=== PATIENT | female | born 1950 | race Caucasian/White ===

== ENCOUNTER → 2024-05-13 13:34 | Outpatient (REF) | payer MEDICARE, BC, SELFPAY | LOC: WDC 13:34 | PROVIDERS: ATTENDING PHYSICIAN Obstetrics & Gynecology Gynecology; FAMILY PHYSICIAN Emergency Medicine | DX: Z12.31 Encounter for screening mammogram for malignant neoplasm of breast (principal) | CPT/HCPCS: 77063; 77067 ==

== ENCOUNTER → 2025-01-18 18:16 | Outpatient (REF) | payer MEDICARE, BC, SELFPAY | LOC: MRI 18:16 | PROVIDERS: ATTENDING PHYSICIAN Nurse Practitioner; FAMILY PHYSICIAN Nurse Practitioner Family | DX: N36.8 Other specified disorders of urethra (principal) | CPT/HCPCS: 72197; A9575 ==